=== PATIENT | female | born 1970 ===

== ENCOUNTER 2017-05-22 08:32 | Emergency (ER) | payer MEDICAID ==
--- NOTE | 2017-05-22 09:57 | ED PDOC ---
HPI: Chest Pain Time Seen by Provider: 05/22/17 09:24 Chief Complaint (Nursing): Chest Pain Chief Complaint (Provider): Chest Pain History Per: Patient History/Exam Limitations: no limitations Onset/Duration Of Symptoms: Hrs (x 4) Current Symptoms Are (Timing): Still Present Additional Complaint(s): 46-year-old female who presents to ED complaining of right-sided chest pain, onset 05:00 this morning. Patient states chest pain woke her up. Describes pain as pressure pain. Pain worsens with movement. PMD: Andre Singh Past Medical History Reviewed: Historical Data, Nursing Documentation, Vital Signs Vital Signs: Last Vital Signs Temp 98.0 F 05/22/17 08:40 Pulse 81 05/22/17 08:40 Resp 21 05/22/17 08:40 BP 135/86 05/22/17 08:40 Pulse Ox 99 05/22/17 11:59 - Medical History PMH: Gastritis Denies: Chronic Kidney Disease - Surgical History Other surgeries: Liposunction - Family History Family History: States: Unknown Family Hx - Social History Current smoker - smoking cessation education provided: No Alcohol: Social Drugs: Denies - Immunization History Hx Influenza Vaccination: No Hx Pneumococcal Vaccination: No - Home Medications Home Medications: Ambulatory Orders Medication Instructions Recorded Acetaminophen with Codeine 1 tab PO Q6H PRN #10 tab 11/02/15 [Tylenol with Codeine No. 3 300 mg-30 mg] Cyclobenzaprine [Cyclobenzaprine 10 mg PO TID PRN #15 tab 05/22/17 HCl] - Allergies Allergies/Adverse Reactions: Allergies Allergy/AdvReac Type Severity Reaction Status Date / Time aspirin Allergy Verified 06/30/15 15:45 Review of Systems ROS Statement: Except As Marked, All Systems Reviewed And Found Negative Cardiovascular: Positive for: Chest Pain (right-sided) Physical Exam - Reviewed Nursing Documentation Reviewed: Yes Vital Signs Reviewed: Yes - Physical Exam Appears: Positive for: Non-toxic Head Exam: Positive for: ATRAUMATIC, NORMAL INSPECTION, NORMOCEPHALIC Skin: Positive for: Normal Color, Warm, Dry Eye Exam: Positive for: Normal appearance ENT: Positive for: Normal ENT Inspection Neck: Positive for: Normal Cardiovascular/Chest: Positive for: Regular Rate, Rhythm, Other (Tenderness to palpations) Respiratory: Positive for: Normal Breath Sounds. Negative for: Respiratory Distress Back: Positive for: Normal Inspection Extremity: Positive for: Normal ROM. Negative for: Deformity Neurologic/Psych: Positive for: Alert, Oriented (x 3). Negative for: Facial Droop - Laboratory Results Result Diagrams: 05/22/17 09:53 18 09:53 Urine POC: Negative - ECG O2 Sat by Pulse Oximetry: 99 (RA) Pulse Ox Interpretation: Normal Medical Decision Making Medical Decision Making: Time: 09:44 Plan: - EKG - CMP - Troponin I - ED Urine Prengnacy - ED Urine Dipstick - CBC - D-Dimer - Partial Thromboplastin Time - Prothrombin Time - Chest X-Ray (-) ED Urine D-Dimer, Quantitative Reveals 156 ng/mlDDU [within range] Troponin I Reveals < 0.0120 [within range] Time: 10:25 Chest X-Ray FINDINGS: LUNGS: No active pulmonary disease. PLEURA: No significant pleural effusion identified. No pneumothorax apparent. CARDIOVASCULAR: Normal. OSSEOUS STRUCTURES: No significant abnormalities. VISUALIZED UPPER ABDOMEN: Normal. OTHER FINDINGS: None. IMPRESSION: No active disease. No significant interval change compared to the prior examination(s). Upon provider evaluation patient is medically stable, and requires no further treatment in the ED at this time. Patient will be discharged with Rx for Cyclobenzaprine HCl. Counseling was provided and all questions were answered regarding diagnosis and need for follow up with PMD. There is agreement to discharge plan. Return if symptoms persist or worsen. Scribe Attestation: Documented by Jonh Ga, acting as a scribe for Pavithra Salas MD Provider Scribe Attestation: All medical record entries made by the Scribe were at my direction and personally dictated by me. I have reviewed the chart and agree that the record accurately reflects my personal performance of the history, physical exam, medical decision making, and the department course for this patient. I have also personally directed, reviewed, and agree with the discharge instructions and disposition. Disposition - Clinical Impression Clinical Impression: Chest wall pain - Patient ED Disposition Is Patient to be Admitted: No - Disposition Referrals: Andre Singh MD [Family Provider] - Disposition: Routine/Home Disposition Time: 11:49 Condition: IMPROVED Prescriptions: Cyclobenzaprine [Cyclobenzaprine HCl] 10 mg PO TID PRN #15 tab PRN Reason: Pain Instructions: Chest Pain Forms: [facility] ([place]) Print Language: TURKISH
[2017-05-22 10:06] LABS: BASO % 0.5 % (0.0-2.0); EOS % 0.7 % (0.0-4.0); HEMOGLOBIN 13.5 g/dL (12.0-16.0); LYMPH # 1.6 K/uL (1.0-4.3); LYMPH % 23.5 % (20.0-40.0); MEAN CELL VOLUME 88.9 fl (81.0-99.0); MEAN CORPUSCULAR HEMOGLOBIN 30.4 pg (27.0-31.0); MEAN CORPUSCULAR HGB CONC 34.2 g/dL (33.0-37.0); MEAN PLATELET VOLUME 8.5 fl (7.2-11.7); MONO # 0.5 K/uL (0.0-0.8); MONO % 6.7 % (0.0-10.0); NEUT # 4.7 K/uL (1.8-7.0); NEUT % 68.6 % (50.0-75.0); NRBC % 0.1 % (0.0-0.0); RBC 4.44 Mil/uL (3.80-5.20); RED CELL DISTRIBUTION WIDTH 13.1 % (11.5-14.5); WHITE BLOOD COUNT 6.8 K/uL (4.8-10.8)
[2017-05-22 10:09] LABS: ALBUMIN 4.1 g/dL (3.5-5.0); ALT/SGPT 54 U/L (9-52); AST/SGOT 35 U/L (14-36); BLOOD UREA NITROGEN 13 mg/dl (7-17); CALCIUM 9.2 mg/dL (8.4-10.2); GFR AFRICAN-AMERICAN > 60; GFR NON-AFRICAN AMERICAN > 60
--- NOTE | 2017-05-22 10:27 | RAD ---
HISTORY: R chest wall pain COMPARISON: 11/02/2015 TECHNIQUE: Chest PA and lateral FINDINGS: LUNGS: No active pulmonary disease. PLEURA: No significant pleural effusion identified. No pneumothorax apparent. CARDIOVASCULAR: Normal. OSSEOUS STRUCTURES: No significant abnormalities. VISUALIZED UPPER ABDOMEN: Normal. OTHER FINDINGS: None. IMPRESSION: No active disease. No significant interval change compared to the prior examination(s).
[2017-05-22 10:51] LABS: PARTIAL THROMBOPLASTIN TIME 29.1 Seconds (25.6-37.1); PROTHROMBIN TIME 11.1 Seconds (9.8-13.1)
--- NOTE | 2017-05-22 11:36 | CARD ---
APPROVED REPORT EKG Measurement Heart [id number] <Conclusion> Normal sinus rhythm Normal ECG
[2017-05-22 13:05] VITALS: BP 120/78; PULSE 78; RESP 19; TEMP 97; O2SAT 98
== END 2017-05-22 13:05 | disposition home or self-care (01) ==
LOC: H.ER 08:32
DX: R07.9 Chest pain, unspecified (principal)
CPT/HCPCS: 71046; 80053; 81025; 84484; 85025; 85378; 85610; 85730; 93005; 96374; 99284; J1885

== ENCOUNTER 2017-11-11 16:51 | Emergency (ER) | payer MEDICAID, OTHER ==
[2017-11-11 17:00] VITALS: BP 121/81; PULSE 80; RESP 16; TEMP 98; O2SAT 99
--- NOTE | 2017-11-11 17:54 | ED PDOC ---
HPI: General Adult Time Seen by Provider: 11/11/17 17:07 Chief Complaint (Nursing): GI Problem Chief Complaint (Provider): GI Problem History Per: Patient History/Exam Limitations: no limitations Onset/Duration Of Symptoms: Days (x4) Current Symptoms Are (Timing): Still Present Additional Complaint(s): 47 year old female presents to the ED complaining of a hemorrhoid. Patient reports for the last 4 days, she has been feeling pain with bowel movement and sensation of a mass at her rectum. Pain has increased for the last 4 days and today associated with blood after a bowel movement. She has been applying preparation H with no relief. Patient denies history of hemorrhoids but does have a history of intermittent constipation which she has not taken medications for. Patient has not been able to see her PMD due to insurance issues. PMD: Dr. Singh Past Medical History Reviewed: Historical Data, Nursing Documentation, Vital Signs Vital Signs: Last Vital Signs Temp 98.0 F 11/11/17 16:56 Pulse 80 11/11/17 16:56 Resp 16 11/11/17 16:56 BP 121/81 11/11/17 16:56 Pulse Ox 99 11/11/17 16:56 - Medical History PMH: Gastritis Denies: Chronic Kidney Disease - Surgical History Surgical History: No Surg Hx - Family History Family History: States: No Known Family Hx - Social History Current smoker - smoking cessation education provided: No Alcohol: Social Drugs: Denies - Immunization History Hx Influenza Vaccination: No Hx Pneumococcal Vaccination: No - Home Medications Home Medications: Ambulatory Orders Medication Instructions Recorded Acetaminophen with Codeine 1 tab PO Q6H PRN #10 tab 11/02/15 [Tylenol with Codeine No. 3 300 mg-30 mg] Cyclobenzaprine [Cyclobenzaprine 10 mg PO TID PRN #15 tab 05/22/17 HCl] Docusate Sodium [Colace] 200 mg PO BID #30 capsule 11/11/17 Hydrocortisone/Pramoxine [Analpram 1 appl TP TID #60 ml 11/11/17 Hc 2.5%-1% Lotion] RX: traMADol [Ultram] 50 mg PO TID #15 tab 11/11/17 - Allergies Allergies/Adverse Reactions: Allergies Allergy/AdvReac Type Severity Reaction Status Date / Time aspirin Allergy Verified 06/30/15 15:45 Review of Systems ROS Statement: Except As Marked, All Systems Reviewed And Found Negative Gastrointestinal: Positive for: Rectal Pain (Hemorrhoid), Other (Blood associated with bowel movement) Physical Exam - Reviewed Nursing Documentation Reviewed: Yes Vital Signs Reviewed: Yes - Physical Exam Appears: Positive for: In Acute Distress (Mild painful distress) Gastrointestinal/Abdominal: Positive for: Normal Exam, Soft. Negative for: Tenderness, Mass, Guarding, Rebound Rectal: Positive for: Hemorrhoids (1 by 1.5cm thrombosed hemorrhoid on the left anal opening with no active bleeding. Hemorrhoid is fleshy appearing with small areas of dark red eschar; tender with no surrounding erythema. ) Comments: Rectal exam performed in the presence of RN Gregory - ECG O2 Sat by Pulse Oximetry: 99 (RA) Pulse Ox Interpretation: Normal Medical Decision Making Medical Decision Making: Initial Impression: Thrombosed hemorrhoid Initial Plan: Patient advised to use sitz bath and analgesics and to follow up with a surgeon. Scribe Attestation: Documented by Refugio Vasquez acting as a scribe for Diana Henderson MD. Provider Scribe Attestation: All medical record entries made by the Scribe were at my direction and personally dictated by me. I have reviewed the chart and agree that the record accurately reflects my personal performance of the history, physical exam, medical decision making, and the department course for this patient. I have also personally directed, reviewed, and agree with the discharge instructions and disposition. Disposition - Clinical Impression Clinical Impression: Hemorrhoid thrombosis - Disposition Referrals: [facility] [Outside] - 11/13/17 ([facility]. [facility] UN REMISION [facility]) Disposition: Routine/Home Disposition Time: 17:30 Condition: STABLE Prescriptions: Docusate Sodium [Colace] 200 mg PO BID #30 capsule Hydrocortisone/Pramoxine [Analpram Hc 2.5%-1% Lotion] 1 appl TP TID #60 ml RX: traMADol [Ultram] 50 mg PO TID #15 tab Instructions: Hemorrhoids (DC), How to Do a Sitz Bath Forms: [facility] ED School/Work Excuse Print Language: SETSWA[place]
== END 2017-11-11 18:17 | disposition home or self-care (01) ==
LOC: H.ER 16:51
DX: K64.5 Perianal venous thrombosis (principal)